=== PATIENT | female | born 1980 | race Caucasian/White ===

== ENCOUNTER 2019-03-03 09:52 | Emergency (ER) | payer MEDICARE, MEDICAID ==
[~2019-03-03] VITALS: Ht 170.2 cm; Wt 107.3 kg
[~2019-03-03 09:52] MED LIST: CYCL-1 PO; METH4TAB81 PO
[2019-03-03 09:57] VITALS: BP 140/113
[2019-03-03] MEDS ORDERED: HYDR-3686 PO (10:52)
== END 2019-03-03 11:08 | disposition home or self-care (01) ==
LOC: ER 09:52
DX: Z79.899 Other long term (current) drug therapy (principal)
CPT/HCPCS: 99283

== ENCOUNTER 2021-08-20 12:05 | Emergency (ER) | payer MEDICARE, MEDICAID ==
[~2021-08-20] VITALS: Ht 170.2 cm; Wt 90.9 kg
[2021-08-20 13:21] VITALS: BP 180/106
== END 2021-08-20 13:22 | disposition home or self-care (01) ==
LOC: ER 12:06
DX: F41.9 Anxiety disorder, unspecified (principal); R03.0 Elevated blood-pressure reading, without diagnosis of hypertension; G43.909 Migraine, unspecified, not intractable, without status migrainosus; R06.02 Shortness of breath; Z79.899 Other long term (current) drug therapy
CPT/HCPCS: 99281

== ENCOUNTER 2025-03-01 12:35 | Emergency (ER) | payer MEDICARE, MEDICAID ==
[~2025-03-01] VITALS: Ht 170.2 cm; Wt 89.2 kg
[2025-03-01 13:31] VITALS: BP 136/80; PULSE 69; RESP 16; O2SAT 100
[2025-03-01] MEDS ORDERED: AMOX875T10 PO (13:47)
--- NOTE | 2025-03-01 13:48 | Physician Documentation ---
HPI ~ General Chief Complaint: Tooth Problem Stated Complaint: SWOLLEN FACE/TOOTH? Time Seen by MD: 12:45 Primary Medical Doctor: Frannie Rodriguez History of Present Illness HPI Comment Patient is seen today with complaints of dental pain of the left lower jaw x2 days. Patient denies any drainage or purulent drainage. Patient has been taking ibuprofen for pain. Patient denies any fevers. She has no other concern or complaint at this time. Medication Reconciliation Allergies: Coded Allergies: No Known Allergies (Unverified , 08/20/21) Scheduled Methylprednisolone (Medrol Dosepak), 6 TAB PO UD Scheduled PRN Cyclobenzaprine* (Cyclobenzaprine*), 1 TABLET PO Qhs PRN for muscle spasms Past Medical History Past Medical History: Headache, Migraine Past Surgical History: noncontributory Alcohol Use: None Drug Use: none Lives with: Family Lives In: Home Occupation: employed Review of Systems Constitutional: Denies: chills, fever, weakness Eyes: Denies: pain, blurred vision ENT: Denies: ear pain, nose pain, throat pain, mouth pain Respiratory: Denies: cough, shortness of breath Cardiovascular: Denies: chest pain, palpitations Gastrointestinal: Denies: abdominal pain, nausea, vomiting Genitourinary: Denies: burning, dysuria Female Genitalia: Denies: vaginal discharge, pelvic pain Neurological: Denies: headache, dizziness Musculoskeletal: Denies: pain, swelling Integumentary: Denies: rash, lesions Allergic/Immunologic: Denies: hives, itching Hematologic/Lymphatic: Denies: no symptoms reported Psychiatric: Denies: depression, anxiety Physical Exam Vital Signs: Temperature: 96.2, Source: Temporal, Heart Rate: 69, Respiratory Rate: 16, BP: 136/80, Pulse Oximetry: 100, Weight: 89.150 Oxygen Flow Rate: 0 Physical Exam General: Awake and Alert, no acute distress. HEENT: Patient on exam does have swelling of left lower jaw with erythema noted. I do not appreciate any periapical abscess or drainage. Area is tender to palpation. Conjunctiva pink, Sclera clear, Mucus Membranes moist. Neck: Supple without masses and tenderness. Resp: Unlabored. Lungs clear to auscultation bilaterally. Heart: Regular Rate and rhythm, normal S1 and S2 without murmur, rub or gallop. Abdomen: Soft and non tender no organomegaly Extremities: No cyanosis,clubbing or edema. Skin: Warm and Dry. Progress Results/Orders Results/Orders Vital Signs 03/01/25 03/01/25 12:39 13:31 Temp 96.2 96.2 Pulse 73 69 Resp 15 16 B/P (MAP) 160/85 136/80 (98) Pulse Ox 97 100 O2 Flow Rate 0 Medical Decision Making Findings Patient is seen today with complaints of dental pain of the left lower jaw x2 days. Patient denies any drainage or purulent drainage. Patient has been taking ibuprofen for pain. Patient denies any fevers. She has no other concern or complaint at this time. Patient given prescription of ibuprofen 800 mg one tab 3 times a day as needed for pain as well as amoxicillin 875 mg one tab twice a day times 10 days. Follow up with dentist as soon as possible. Return to ED with any worsening, concerning or changing symptoms. Shared decision-making utilized today. Departure Disposition: HOME / SELF CARE / HOMELESS Impression: Primary Impression: Dental abscess Additional Impression: Toothache Condition: Improved Discharge Instructions: Dental Pain Additional Instructions: Patient given prescription of ibuprofen 800 mg one tab 3 times a day as needed for pain as well as amoxicillin 875 mg one tab twice a day times 10 days. Follow up with dentist as soon as possible. Return to ED with any worsening, concerning or changing symptoms. Shared decision-making utilized today. Referrals: NO PRIMARY CARE PROVIDER (PCP) Prescriptions Amoxicillin Trihydrate (Amoxicillin) 875 Mg Tablet 1 TAB PO Q12H for 10 Days, #20 TAB Prov: ROXANNA RUTHERFORD 03/01/25 Signature Scribe Signature: No scribe Attestation: No scribe ROXANNA RUTHERFORD March 01, 2025 13:48
[2025-03-01 13:52] VITALS: TEMP 96.2
== END 2025-03-01 13:57 | disposition home or self-care (01) ==
LOC: ER 12:36
DX: K04.7 Periapical abscess without sinus (principal)
CPT/HCPCS: 99283